=== PATIENT | male | born 1950 | race Caucasian/White ===

== ENCOUNTER 2023-04-20 13:56 | Emergency (ER) | payer MEDICARE, OTHER, SELFPAY ==
[2023-04-20 14:02] VITALS: BP 137/78; PULSE 84; RESP 18; TEMP 36.4; O2SAT 98; BMI 20.1
--- NOTE | 2023-04-20 15:07 | ED.MALEGU ---
HPI - Male Genitourinary <Magnolia Rodriguez PA-C - Last Filed: 04/20/23 15:11> General Chief complaint: Urogenital-Male Stated complaint: broke blood vessel in urethra, sent by PCP Time Seen by Provider: 04/20/23 14:23 Source: patient Mode of arrival: Ambulatory History of Present Illness HPI Narrative: Patient is a 72-year-old male with a history of prostate cancer, just finished chemotherapy, last radiation in July, who presents with inability to urinate. He normally self caths at home when this occurs but was not able to today. He reports he was driving for 3 hours this morning which is why he thinks a large clot developed. He was quite uncomfortable and came to the emergency department. During his time waiting to be seen, he was able to void after drinking quite a lot of water and feeling a lot of pressure in his bladder. He is now voiding easily without pain. He has no fever, abdominal pain or other symptoms at this time. Related Data Home Medications Medication Instructions Recorded Confirmed atenolol 50 mg tablet 50 mg PO DAILY 07/10/20 01/08/21 cholecalciferol (vitamin D3) 1,250 1,250 mcg PO QMONTH 07/10/20 01/08/21 mcg (50,000 unit) capsule prednisone 1 mg tablet 1 mg PO DAILY 07/10/20 01/08/21 vitamin B complex (B 1 tab PO DAILY 07/10/20 01/08/21 Complex-Vitamin B12 tablet) darolutamide 300 mg tablet 600 mg PO BID 01/08/21 01/08/21 simvastatin 20 mg tablet 20 mg PO DAILY 01/08/21 01/08/21 Allergies Allergy/AdvReac Type Severity Reaction Status Date / Time No Known Drug Allergies Allergy Unverified 01/08/21 10:29 Review of Systems <Magnolia Rodriguez PA-C - Last Filed: 04/20/23 15:11> Review of Systems ROS Unobtainable: All systems reviewed & are unremarkable except as noted in HPI and below Patient History <Magnolia Rodriguez PA-C - Last Filed: 04/20/23 15:11> Medical History Arthritis Prostate cancer Rheumatoid arthritis Surgical History Previous back surgery Social History marital status: occupational status: employed Previous occupational history: [employer] Smoking Status: Never smoker alcohol intake: current caffeine: Yes Smoking Status: Never smoker Substance Use Type: does not use Exam <Magnolia Rodriguez PA-C - Last Filed: 04/20/23 15:11> Narrative Exam Narrative: GENERAL: 72 year old patient appears stated age. Well-developed patient, in no distress. NEURO: AOx3. HEAD: Atraumatic. Normocephalic. EYES: Pupils equal round and reactive. Extraocular motions intact. No scleral icterus. ENT: Nose without bleeding or purulent drainage. RESPIRATORY: No distress GASTROINTESTINAL: Abdomen soft, non-tender, nondistended. No CVA tenderness. SKIN: No rash or erythema of visible areas Initial Vital Signs Initial Vital Signs: Vital Signs Temperature 97.5 F L 04/20/23 14:02 Pulse Rate 84 04/20/23 14:02 Respiratory Rate 18 04/20/23 14:02 Blood Pressure 137/78 04/20/23 14:02 Pulse Oximetry 98 04/20/23 14:02 Oxygen Delivery Method Room Air 04/20/23 14:02 <Elliot Rhodes DO - Last Filed: 04/22/23 16:29> Initial Vital Signs Initial Vital Signs: Vital Signs Temperature 97.5 F L 04/20/23 14:02 Pulse Rate 84 04/20/23 14:02 Respiratory Rate 18 04/20/23 14:02 Blood Pressure 137/78 04/20/23 14:02 Pulse Oximetry 98 04/20/23 14:02 Oxygen Delivery Method Room Air 04/20/23 14:02 Course <Magnolia Rodriguez PA-C - Last Filed: 04/20/23 15:11> Orders Ordered: ED Orders 04/20/23 15:00 Ictotest Urine Stat Urinalysis and Microscopic Stat Vital Signs Vital signs: Vital Signs - 8 hr 04/20/23 14:02 04/20/23 15:08 Temperature 97.5 F L Pulse Rate 84 79 Respiratory Rate 18 18 Blood Pressure 137/78 120/81 Pulse Oximetry 98 99 Oxygen Delivery Method Room Air <Elliot Rhodes DO - Last Filed: 04/22/23 16:29> Orders Ordered: ED Orders 04/20/23 15:00 Ictotest Urine Stat Urinalysis and Microscopic Stat Vital Signs Vital signs: Vital Signs - 8 hr 04/20/23 14:02 04/20/23 15:08 Temperature 97.5 F L Pulse Rate 84 79 Respiratory Rate 18 18 Blood Pressure 137/78 120/81 Pulse Oximetry 98 99 Oxygen Delivery Method Room Air MDM - Male Genitourinary <Magnolia Rodriguez PA-C - Last Filed: 04/20/23 15:11> Lab Data Labs: Lab Results 04/20/23 Range/Units 15:00 Urine Color Brown Urine Appearance Cloudy Urine pH 5.0 (4.5-8.0) Ur Specific [place] 1.015 (1.000-1.035) Urine Protein 2+ H (Negative) Urine Glucose (UA) Negative (Negative) g/dL Urine Ketones Negative (NEGATIVE) Urine Occult Blood 3+ H (Negative) Urine Nitrate Negative (Negative) Urine Bilirubin 1+ H (NEGATIVE) Ur Bilirubin Confirm Negative (Negative) Urine Urobilinogen 1.0 (0.2) E.U./dL Ur Leukocyte Esterase Negative (NEGATIVE) Urine RBC 30-100/hpf H (0-5/HPF) Urine WBC None seen (0-5/HPF) Ur Squamous Epith Cells 1-5 /hpf (0-5/HPF) Urine Bacteria None seen (None) Ur Culture Indicated? Cult not indicated MDM Narrative Medical decision making narrative: Multiple etiologies for patient's symptoms considered including, but not limited to: Urinary tract obstruction, UTI, upper tract infection, prostatitis. Patient reports he is able to void while in the emergency department, is in no pain and has no fever. He knows how to follow up with his oncologist and/or urologist. Patient's symptoms improved over duration of stay with above-stated therapies. Findings and discharge diagnosis discussed with patient/family followed by verbalization of understanding Return precautions discussed with patient/family whom verbalize understanding of diagnosis and plan <Elliot Rhodes DO - Last Filed: 04/22/23 16:29> Lab Data Labs: Lab Results 04/20/23 Range/Units 15:00 Urine Color Brown Urine Appearance Cloudy Urine pH 5.0 (4.5-8.0) Ur Specific [place] 1.015 (1.000-1.035) Urine Protein 2+ H (Negative) Urine Glucose (UA) Negative (Negative) g/dL Urine Ketones Negative (NEGATIVE) Urine Occult Blood 3+ H (Negative) Urine Nitrate Negative (Negative) Urine Bilirubin 1+ H (NEGATIVE) Ur Bilirubin Confirm Negative (Negative) Urine Urobilinogen 1.0 (0.2) E.U./dL Ur Leukocyte Esterase Negative (NEGATIVE) Urine RBC 30-100/hpf H (0-5/HPF) Urine WBC None seen (0-5/HPF) Ur Squamous Epith Cells 1-5 /hpf (0-5/HPF) Urine Bacteria None seen (None) Ur Culture Indicated? Cult not indicated Discharge Plan Departure Patient Disposition: Home Clinical Impression: Prostate cancer Instructions: DI for Urinary Retention in Men Activity Restrictions/Additional Instructions: *You have been diagnosed with urinary retention due to blood clots. This problem has resolved while you were in the emergency department. You should follow-up with your oncologist and/or Urology. We will give you an extra catheter in case this happens again. *What to do: *Please continue to take your regular medications as directed. [ ] New medication prescriptions sent to your pharmacy: [ ] [ ] New medication written as a paper prescription [x ] No new medications given *Please follow up with your primary care provider in 2-3 days, call for an appointment. Let them know you were seen in the Emergency Department and that we ask that you be seen in follow up. We will electronically transmit a record of today's note if your PCP is in our system *If you do not have a primary care provider please contact the [facility] Resource line at [phone]. They will ask some questions about your medical history and help get you set up with a doctor in the community. *Return to Emergency Department if you should have any new, worsening or concerning symptoms, such as [fever greater than 101 F, shaking chills, worsening pain, persistent vomiting or other bothersome symptoms] Prescriptions: No Action atenolol 50 mg tablet 50 mg PO DAILY prednisone 1 mg tablet 1 mg PO DAILY vitamin B complex [B Complex-Vitamin B12] Tablet 1 tab PO DAILY cholecalciferol (vitamin D3) 1,250 mcg (50,000 unit) capsule 1,250 mcg PO QMONTH simvastatin 20 mg tablet 20 mg PO DAILY darolutamide 300 mg tablet 600 mg PO BID Referrals: Yana Garg MD [Primary Care Provider] - Stand Alone Forms: Patient Portal/API <Elliot Rhodes DO - Last Filed: 04/22/23 16:29> Cosign ED Attending Cosignature Attestation: I was immediately available in the department for consultation. Documentation has been reviewed. I agree with assessment and plan.
[2023-04-20 15:08] VITALS: BP 120/81; PULSE 79; RESP 18; O2SAT 99
[2023-04-20 15:08] LABS: Appearance Urine UA CLOUDY; Bilirubin Urine UA 1+ (NEGATIVE); Color Urine UA BROWN; Glucose Urine UA NEGATIVE (Negative); Ketones Urine UA NEGATIVE (NEGATIVE); Leukocyte Esterase Urine UA NEGATIVE (NEGATIVE); Nitrite Urine UA NEGATIVE (Negative); Occult Blood Urine UA 3+ (Negative); Protein Urine UA 2+ (Negative); Specific Gravity Urine UA 1.015 (1.000-1.035)
[2023-04-20 15:13] LABS: Bacteria Urine None Seen; Culture Indicated Urine Cult Not Indicated; Ictotest Urine Negative (Negative); RBC Urine 30-100/HPF (0-5/HPF); Squamous Epithelial Cell Urine 1-5 /HPF (0-5/HPF); WBC Urine None Seen (0-5/HPF)
== END 2023-04-20 15:13 | disposition home or self-care (01) ==
PROVIDERS: Emergency Medicine; Emergency Provider Physician Assistant; PCP Specialist
DX: C61 Malignant neoplasm of prostate (principal); R33.9 Retention of urine, unspecified
CPT/HCPCS: 81001; 99281; 99282